=== PATIENT | female | born 1945 | race Caucasian/White ===

== ENCOUNTER 2024-09-05 15:49 | Emergency (ER) | payer MEDICARE, SELFPAY ==
--- NOTE | ~2024-09-05 | XR_ITS ---
CHEST RADIOGRAPH, PA AND LATERAL CLINICAL HISTORY: syncope . COMPARISON: None available TECHNIQUE: PA and lateral views of the chest. FINDINGS Small hiatal hernia. Multiple cardiac stents. Findings on frontal view suggesting left atrial enlargement. The remainder of the cardiomediastinal silhouette is otherwise unremarkable. Blunting of the right costophrenic sulcus suggesting a small right-sided pleural effusion. Remainder of the lungs are clear. IMPRESSION: Small right-sided pleural effusion without focal infiltrate Reviewed, dictated and finalized at location A.
--- NOTE | 2024-09-05 15:55 | ECG_ITS ---
Test Date: 2024-09-05 15:57:50 Measurements Intervals Gepp Rate: 55 P: 50 ID: [id number] QRS: -1 QRSD: 90 T: 42 QT: 414 QTc: 397 Interpretive Statements SINUS BRADYCARDIA DELAYED PRECORDIAL R/S TRANSITION BORDERLINE ST ABNORMALITY- HIGH LATERAL LEADS BASELINE ARTIFACT- I, II, III, AVF, V4-V6 BORDERLINE ECG No previous ECG available for comparison Electronically Signed On 09-05-2024 20:53:50 CDT by Chadwick Otto D.O.
[2024-09-05 15:57] VITALS: BP 116/52; PULSE 55; RESP 16; TEMP 36.6; O2SAT 99
[2024-09-05 16:07] VITALS: PULSE 56
--- NOTE | 2024-09-05 16:07 | ED_ITS ---
HPI - Syncope General Chief Complaint: Syncope Stated Complaint: syncopal Time Seen by Provider: 09/05/24 15:57 Source: patient Mode of arrival: EMS Limitations: no limitations History of Present Illness HPI narrative: This is a 79-year-old female that presents to the emergency department for presyncopal episode today. [place] the [place] today. She was seated in the sun most of the day. When she stood up she started to feel very hot, lightheaded. She sat down, was not responding to questions. Was helped by a nurse on scene, then EMS was called. Patient reports feeling mildly sleepy now, otherwise has no focal complaints. Does report her carvedilol dose was increased from 12.5mg BID to 25mg BID recently. Denies chest pain, shortness of breath, palpitations. Related Data Allergies Allergy/AdvReac Type Severity Reaction Status Date / Time clopidogrel (From Plavix) Allergy Intermediate Hives Verified 09/05/24 16:03 Sulfa (Sulfonamide Allergy Intermediate Hives Verified 09/05/24 16:03 Antibiotics) Review of Systems 2 Review of Systems: All systems reviewed & are unremarkable except as noted in HPI and below PMFSH Past Medical History Medical History (Updated 09/05/24 @ 19:36 by Isabel Salas PA-C) History of CAD (coronary artery disease) Social History Social History (Updated 09/05/24 @ 16:54 by Isabel Salas PA-C) Smoking status: Never smoker Exam 2 Narrative: GENERAL: Well-appearing, well-nourished, and in no acute distress. HEAD: Normocephalic, atraumatic. EYES: PERRLA and EOMI. ENT: Nares clear, no rhinorrhea or epistaxis. Mucous membranes moist. Oropharynx without tonsillar hypertrophy exudate or other lesions. Bilateral TMs pearly vo non-bulging NECK: Supple. No adenopathy or masses. CHEST: Clear to auscultation. No respiratory distress. No wheezes rales or rhonchi HEART: Regular rate and rhythm. No murmur heard. Normal peripheral pulses. EXTREMITIES: Normal range of motion. No edema. SKIN: Warm, dry, no rash. NEURO: No focal deficits. Alert and oriented x3. Cranial nerves 2-12 grossly intact PSYCH: Normal mood and affect Course Course Emergency Course: Patient and family updated on workup and agree with plan of care Vital Signs Vital signs: Vital Signs Temperature 97.8 F 09/05/24 15:57 Pulse Rate 55 L 09/05/24 15:57 Respiratory Rate 16 09/05/24 15:57 Blood Pressure 116/52 L 09/05/24 15:57 Pulse Oximetry 99 09/05/24 15:57 Oxygen Delivery Room Air 09/05/24 15:57 Temperature 97.8 F 09/05/24 15:57 Pulse Rate 71 09/05/24 19:26 Respiratory Rate 18 09/05/24 19:26 Blood Pressure 124/50 L 09/05/24 19:26 Pulse Oximetry 100 09/05/24 19:26 Oxygen Delivery Room Air 09/05/24 15:57 MDM - Syncope MDM Narrative Medical decision making narrative: Patient presents the emergency department for near syncopal episode today. She is neurologically intact. Her vitals are stable. CBC shows normocytic anemia hemoglobin of 10.3. Patient reports longstanding history of anemia. Metabolic panel with evidence of mild dehydration. Patient hydrated with a L of IV fluids. Urine with possible evidence of infection. Patient will be started on oral antibiotics. Chest x-ray shows a possible small right sided pleural effusion without focal infiltrate. Patient has no chest pain, shortness of breath, oxygen saturation is normal on room air. Lungs are clear on exam. EKG shows sinus bradycardia. Patient ambulatory in the ED with a steady gait. Reports feeling much improved. I was not able to reach her [employer] combat skills, but did encourage her to follow up for further evaluation. She does endorse her carvedilol dose was recently increased the last couple of days. Will follow up for further management of this as well. Given warnings to return to the ER Differential Diagnosis Differential diagnosis: Likely syncope due to orthostatic hypotension, vasovagal syncope, dehydration and other (adverse medication reaction) Lab Data Attestation: I reviewed the patient's lab results. 09/05/24 16:18 09/05/24 16:18 Labs: Lab Results 09/05/24 09/05/24 Range/Units 16:18 18:28 WBC 9.2 (4.5-10.0) K/mm3 RBC 3.58 L (4.2-5.4) M/mm3 Hgb 10.3 L (12.0-15.0) g/dL Hct 32.2 L (37.0-47.0) % MCV 89.9 (80-100) fl MCH 28.8 (26-34) pg MCHC 32.0 (32-36) g/dl RDW 14.6 H (11.5-14.5) % Plt Count 245 (150-375) k/mm3 MPV 11.5 H (7.4-10.4) fl Immature Gran % (Auto) 0.2 (0-0.5) % Neut % (Auto) 76.0 H (45.5-73.1) % Lymph % (Auto) 15.0 L (18.3-44.2) % [place] % (Auto) 8.6 H (2.6-8.5) % Eos % (Auto) 0.0 (0-4.4) % Baso % (Auto) 0.2 (0.2-1.2) % Lymph # (Auto) 1.38 (0.9-3.2) K/mm3 [place] # (Auto) 0.8 H (0.1-0.6) K/mm3 Eos # (Auto) 0.0 (0-0.3) K/mm3 Baso # (Auto) 0.0 (0.0-0.1) K/mm3 Abs Immat Gran (auto) 0.02 (0.00-0.031) K/mm3 Absolute Neuts (auto) 7.0 H (1.3-6.7) K/mm3 Absolute Nucleated RBC 0.000 (0.0-0.012) K/mm3 Nucleated RBC % 0.0 (0.0-0.2) % PT 14.0 (11.1-14.7) Seconds INR 1.1 APTT 31.5 (22.3-36.8) Seconds Sodium 139 (137-145) mmol/L Potassium 4.1 (3.4-5.0) mmol/L Chloride 106 (98-107) mmol/L Carbon Dioxide 26 (22-30) mmol/L Anion Gap 7 (4-12) mmol/L BUN 27 H (7-17) mg/dL Creatinine 1.27 H (0.7-1.0) mg/dL Estim Creat Clear Calc 28 ml/min Estimated GFR 41 L (59 - ) Glucose 129 H (65-110) mg/dL Calcium 9.2 (8.4-10.2) mg/dL Total Bilirubin 1.1 (0.2-1.3) mg/dL AST 36 (14-36) U/L ALT 20 (6-35) U/L Alkaline Phosphatase 104 (38-126) U/L Total Creatine Kinase 64 (30-135) U/L Troponin I < 0.012 (0.000-0.034) ng/mL Total Protein 7.0 (6.3-8.2) g/dL Albumin 4.2 (3.5-5.1) g/dL Urine Color Yellow (Yellow) Urine Appearance Clear (Clear) Urine pH 6.0 (5.0-9.0) Ur Specific [place] 1.016 (1.001-1.035) Urine Protein Negative (Negative) mg/dL Urine Glucose (UA) Negative (Negative) mg/dL Urine Ketones Trace H (Negative) mg/dL Ur Blood (Man) Negative (Negative) Urine Nitrate Negative (Negative) Urine Bilirubin Negative (Negative) Urine Urobilinogen 1.0 (<2.0) mg/dL Leukocyte Esterase Rfl 2+ H (Negative) KELSIE/UL Urine RBC 0-2 (0-2) /hpf Urine WBC 11-20 H (0-3) /hpf Ur Squamous Epith Cells Occasional (Few) /hpf Urine Bacteria None seen /hpf Urine Casts 3-5 Imaging Data Radiologist's impression: ITS Impressions Chest X-Ray 09/05/24 17:01 IMPRESSION: Small right-sided pleural effusion without focal infiltrate ECG Data EKG #1: ECG completion date: 09/05/24 EKG Interpretation: bradycardia, sinus rhythm, no ST changes and normal QT Critical Care Time Critical Care Time Critical Care Time: No Discharge Plan Discharge Clinical Impression: Near syncope, Acute UTI Anemia Qualifiers: Anemia type: unspecified type Qualified Code(s): D64.9 - Anemia, unspecified Patient Disposition: Home Condition: Stable Instructions: Antibiotic Form, Urinary Tract Infection in Women (ED), Near Syncope (ED), Anemia (ED) Additional Instructions: Return to the emergency department if you experience fever, chest pain, shortness of breath, abdominal pain with nausea and vomiting, weakness, numbness, you pass out, or any other symptoms that are concerning to you. Remain well hydrated. Take oral antibiotic as prescribed. 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
--- OUTSIDE RECORDS SUMMARY | 2024-09-05 16:17 | XMS_ITS | Clinical Summary ---
Author Organization [facility] Address [address] [place] [address] Care Team Providers Care Director Of Distribution Name Role Phone Unavailable Primary Care Provider Unavailabl e Source Comments [facility],non-owned Affiliates and Associated Physician Practices is amultiple site organization consisting of ambulatory clinics and hospital sitesin [place], [place], [place] and [place]. This disclosure is being madepursuant to the Care Everywhere program and may not contain all information available regarding this patient. Last updated 17.[facility] [employer] Immunizations Immunization Administration Dates Next Due Covid Pfizer primary monoval ent 12+ yr 0.3mL Purple cap 05/11/2020,04/20/2020 Social History Tobacco Use Types Packs/Day Years Used Date Smoking Tobacco: Never Assessed Comments Unknown Sex and Gender Information Value Date Recorded Sex Assigned at Not on file Legal Sex Female 11:09 AM [employer] Gender Identity Female 04/21/2020 11:09 AM [employer] Sexual Orientation Not on file Plan of Treatment Health Maintenance Due Date Last Done Comments BONE DENSITY TESTING 1945 HEPATITIS C SCREENING 08/28/1964 DTAP/TDAP/TD VACCINES (1 - Tdap) 1965 PNEUMOCOCCAL VACCINE 50+ (1 of 1 - PCV) 1996 ZOSTER VACCINE (1 of 2) 1996 Respiratory Syncytial Virus (RSV) Vaccine Pt: or over 60 yrs (1 - 1-dose 75+ series) 2021 COVID-19 VACCINE (3 - 2023-2 5 season) 2023 05/11/2020, 04/20/2020 DEPRESSION SCREENING 03/25/2024 INFLUENZA VACCINE (Season Ended) 2024 HEPATITIS B VACCINE Aged Out No longe r eligible based on patient's age to complete this topic HIB VACCINE Aged Out No longer eligi ble based on patient's age to complete this topic HPV VACCINE Aged Out No longer eligi ble based on patient's age to complete this topic MENINGOCOCCAL (Group B) VACCINE SHARED DECISION-MAKING Aged Out No longer eligible based on patient's age to complete this topic MENINGOCOCCAL GROUPS A/C/Y/W VACCINE Aged Out No longer eligible b ased on patient's age to complete this topic
[2024-09-05 16:23] LABS: Basophils Percent Auto 0.2 % (0.2-1.2); Hematocrit 32.2 % (37.0-47.0); Hemoglobin 10.3 g/dL (12.0-15.0); Immature Granulocyte Absolute 0.02 K/mm3 (0.00-0.031); Immature Granulocyte Percent A 0.2 % (0-0.5); Lymphocytes Absolute Auto 1.38 K/mm3 (0.9-3.2); Mean Corpuscular Hemoglobin 28.8 pg (26-34); Mean Corpuscular Volume 89.9 fl (80-100); Mean Platelet Volume 11.5 fl (7.4-10.4); Monocytes Absolute Auto 0.8 K/mm3 (0.1-0.6); Monocytes Percent Auto 8.6 % (2.6-8.5); Platelet Count Result 245 k/mm3 (150-375); Red Blood Count 3.58 M/mm3 (4.2-5.4); Red Cell Distribution Width 14.6 % (11.5-14.5); White Blood Count 9.2 K/mm3 (4.5-10.0)
[2024-09-05 16:24] VITALS: BP 116/47; PULSE 55
[2024-09-05 16:25] VITALS: BP 115/48; BP 117/46; PULSE 55; PULSE 68
[2024-09-05 16:32] LABS: Creatine Kinase 64 U/L (30-135)
[2024-09-05 16:34] LABS: Alanine Aminotransferase 20 U/L (6-35); Albumin Level 4.2 g/dL (3.5-5.1); Alkaline Phosphatase 104 U/L (38-126); Anion Gap 7 mmol/L (4-12); Aspartate Amino Transferase 36 U/L (14-36); Bilirubin,Total 1.1 mg/dL (0.2-1.3); Blood Urea Nitrogen 27 mg/dL (7-17); Calcium 9.2 mg/dL (8.4-10.2); Carbon Dioxide 26 mmol/L (22-30); Chloride 106 mmol/L (98-107); Estimated CRCL calculation 28 ml/min; Estimated Glomerular Filt Rate 41; Glucose 129 mg/dL (65-110); Potassium 4.1 mmol/L (3.4-5.0); Sodium 139 mmol/L (137-145)
[2024-09-05 16:35] LABS: INR 1.1
[2024-09-05] MEDS: SODIUM CHLORIDE 0.9% IV 1,000 ML 999 ML IV CONT (16:35)
[2024-09-05 16:36] LABS: Partial Thromboplastin Time 31.5 Seconds (22.3-36.8)
[2024-09-05 16:45] LABS: Troponin I < 0.012 ng/mL (0.000-0.034)
--- NOTE | 2024-09-05 18:25 | PC.NURSE ---
Pt and family upset over shared room and child screaming next to them. Offered to move pt to ED1 to private room, which she accepted. Pt agreeable to try to give urine sample at this time. Pt ambulatory to restroom with steady gait.
[2024-09-05 19:26] VITALS: BP 124/50; PULSE 71; RESP 18; O2SAT 100
[2024-09-05 19:32] LABS: Add Urine Microscopic? YES; Appearance Urine Clear (Clear); Bacteria Urine None Seen /hpf; Bilirubin Urine Negative (Negative); Blood Urine Negative (Negative); Color Urine Yellow (Yellow); Glucose Urine UA Negative (Negative); Ketones Urine Trace mg/dL (Negative); Leukocyte Esterase Ur 2+ LEU/UL (Negative); Nitrate Urine Negative (Negative); Protein Urine Negative (Negative); RBC Urine 0-2 /hpf (0-2); Specific Grav Ur 1.016 (1.001-1.035); Squamous Epithelial Cell Urine Occasional /hpf (Few)
== END 2024-09-05 19:59 | disposition home or self-care (01) ==
PROVIDERS: Emergency Provider Physician Assistant
DX: N39.0 Urinary tract infection, site not specified (principal); R55 Syncope and collapse; I25.10 Atherosclerotic heart disease of native coronary artery without angina pectoris; R00.1 Bradycardia, unspecified
CPT/HCPCS: 36415; 71046; 80053; 81001; 82550; 84484; 85025; 85610; 85730; 87086; 93005; 96360; 99284; J7030